=== PATIENT | male | born 1985 | race Two or more races ===

== ENCOUNTER 2018-07-19 19:20 | Emergency (ER) | payer BC ==
[~2018-07-19] VITALS: Ht 162.6 cm; Wt 61.0 kg
[2018-07-19 20:48] VITALS: BP 114/86
== END 2018-07-19 23:57 | disposition left against medical advice (07) ==
LOC: ER 19:20
DX: Z53.21 Procedure and treatment not carried out due to patient leaving prior to being seen by health care provider (principal)

== ENCOUNTER 2024-11-21 05:58 | Emergency (ER) | payer BC ==
[~2024-11-21] VITALS: Ht 162.6 cm; Wt 57.0 kg
[2024-11-21 06:02] VITALS: O2SAT 99
[2024-11-21] MEDS: OXYCODONE HCL/ACETAMINOPHEN 5/325MG TABLET PO ONE (06:28)
[2024-11-21 07:52] LABS: BASOPHILS % 0.2 % (0.0-2.0); EOSINOPHILS % 1.5 % (0.0-5.0); HEMATOCRIT. 36.7 % (42.0-52.0); HEMOGLOBIN. 12.2 g/dL (14.0-18.0); LYMPHOCYTES % 11.2 % (20.0-50.0); MEAN PLATELET VOLUME 7.4 fl (7.4-10.4); MONOCYTES % 5.0 % (2.0-8.0); NEUTROPHILS % 82.1 % (40.0-76.0); PLATELET 316 x1000/uL (130-400); RED BLOOD CELL COUNT 4.40 mill/uL (4.7-6.1); RED CELL DISTRIBUTION WIDTH 13.6 % (11.6-14.6)
[2024-11-21 08:06] LABS: CREATININE 0.8 mg/dL (0.6-1.3); UREA NITROGEN BLOOD 7 mg/dL (9-23)
[2024-11-21] MEDS: MORPHINE SULFATE 4 MG/ML INJ (FOR IV/IM USE) IV ONE (09:24)
[2024-11-21] MEDS ORDERED: T3 PO (10:24)
[2024-11-21] MEDS ORDERED: IBUP-1455 PO (10:24)
[2024-11-21 11:09] VITALS: BP 130/81; PULSE 79; RESP 11; TEMP 37.1; O2SAT 98
[2024-11-21] MEDS ORDERED: IOHEXOL-350 100 ML BOTTLE ONE (11:17)
== END 2024-11-21 11:35 | disposition home or self-care (01) ==
LOC: ER 06:27
DX: S82.144A Nondisplaced bicondylar fracture of right tibia, initial encounter for closed fracture (principal); F12.90 Cannabis use, unspecified, uncomplicated; Z79.1 Long term (current) use of non-steroidal anti-inflammatories (NSAID); X58.XXXA Exposure to other specified factors, initial encounter; Y93.89 Activity, other specified; Y92.89 Other specified places as the place of occurrence of the external cause; Y99.8 Other external cause status
CPT/HCPCS: 80048; 85025; 36415; 73562; 73706; 29505; 96374; 99285; Q9967; J2270; Z7610; A6449